=== PATIENT | male | born 1975 | race Two or more races ===

== ENCOUNTER 2024-05-21 09:17 | Inpatient (IN) | payer BC ==
[~2024-05-21] VITALS: Ht 177.8 cm; Wt 59.0 kg
[2024-05-21] MEDS ORDERED: iron (09:48)
[2024-05-21 09:52] LABS: BASOPHILS % 2.5 % (0.0-2.0); DIFFERENTIAL COMMENT 1; EOSINOPHILS % 1.2 % (0.0-5.0); HEMATOCRIT. 33.2 % (42.0-52.0); HEMOGLOBIN. 9.7 g/dL (14.0-18.0); MEAN CORPUSCULAR HEMOGLOBIN 17.4 pg (28.0-32.0); MEAN CORPUSCULAR HGB CONC 29.2 g/dL (31.0-37.0); MEAN CORPUSCULAR VOLUME 59.5 fL (80.0-94.0); MEAN PLATELET VOLUME 8.4 fl (7.4-10.4); NEUTROPHILS % 66.3 % (40.0-76.0); PLATELET 874 x1000/uL (130-400); RED BLOOD CELL COUNT 5.58 mill/uL (4.7-6.1); RED CELL DISTRIBUTION WIDTH 30.7 % (11.6-14.6); WHITE BLOOD COUNT 12.9 x1000/uL (4.5-11.0)
[2024-05-21 09:53] LABS: ADD RBC MORPHOLOGY YES
[2024-05-21 09:55] LABS: CHLORIDE 106 mEq/L (98-107); POTASSIUM 4.5 mEq/L (3.5-5.1); SODIUM 136 mEq/L (136-145)
[2024-05-21 09:56] LABS: CALCIUM 8.8 mg/dL (8.7-10.4); CARBON DIOXIDE 26 mEq/L (21-32)
[2024-05-21 10:01] LABS: CREATININE 0.8 mg/dL (0.6-1.3); GLUCOSE 101 mg/dL (70-105); UREA NITROGEN BLOOD 13 mg/dL (9-23)
[2024-05-21 10:03] LABS: ALANINE AMINOTRANSFERASE 15 IU/L (10-49); ALBUMIN 4.1 g/dL (3.2-4.8); ASPARTATE AMINOTRANSFERASE 20 IU/L (<34); BILIRUBIN DIRECT 0.2 mg/dL (<=3.0); BILIRUBIN TOTAL 0.5 mg/dL (0.1-1.0); PROTEIN TOTAL 8.4 g/dL (6.0-8.3)
[2024-05-21 10:04] LABS: TROPONIN I HIGH SENSITIVITY < 4 ng/L (3.0-53)
[2024-05-21 10:05] LABS: INR 1.1; PROTHROMBIN TIME 11.8 sec (9.6-11.0)
[2024-05-21 10:14] LABS: ANISOCYTOSIS 3+; MICROCYTOSIS 3+; PLATELET ESTIMATE MARKEDLY INCREASED
[2024-05-21] MEDS: SODIUM CHLORIDE 0.9% 1000ML BAG (SEPSIS BOLUS) IV ONE (10:16)
[2024-05-21] MEDS: ACETAMINOPHEN 325MG TABLET PO NR (10:16)
[2024-05-21] MEDS: CEFTRIAXONE 1GM/50ML 50 ML IV NR (10:16)
[2024-05-21 10:25] LABS: OVALOCYTES 1+; ROULEAUX 1+
[2024-05-21] MEDS: AZITHROMYCIN 500MG/250ML 250 ML IV SCH (11:47)
[2024-05-21] MEDS ORDERED: CLONIDINE 0.1MG TABLET PO PRN (12:30)
[2024-05-21] MEDS ORDERED: MAGNESIUM/ALUMINUM HYDROXIDE/SIMETHICONE 30ML UDC PO PRN (12:30)
[2024-05-21] MEDS ORDERED: ACETAMINOPHEN 325MG TABLET PO PRN ×2 (12:30)
[2024-05-21] MEDS ORDERED: GUAIFENESIN 200MG/10ML SUGAR FREE UDC PO PRN (12:30)
[2024-05-21] MEDS ORDERED: ONDANSETRON HCL 4MG/2ML INJ IV PRN (12:30)
[2024-05-21] MEDS ORDERED: IPRATROPIUM/ALBUTEROL 0.5-3(2.5)MG/3ML NEB HHN PRN (12:30)
[2024-05-21] MEDS ORDERED: DOCUSATE SODIUM 100MG CAPSULE PO PRN (12:30)
[2024-05-21] MEDS ORDERED: AMLODIPINE 5MG TABLET PO NR (12:45)
[2024-05-21 13:29] LABS: IRON 14 ug/dL (65-175); TRIGLYCERIDE 84 mg/dL (0-150)
[2024-05-21 13:30] LABS: LDL CHOLESTEROL 58 mg/dL (5-100)
[2024-05-21 13:31] LABS: CHOLESTEROL 105 mg/dL (<200); HDL CHOLESTEROL 40 mg/dL (>55)
[2024-05-21 13:32] LABS: TOTAL IRON BINDING CAPACITY 275 ug/dl (250-425)
[2024-05-21 13:34] LABS: T4 FREE 1.01 ng/dL (0.89-1.76); THYROID STIMULATING HORMONE 0.62 uIU/mL (0.55-4.78)
[2024-05-21] MEDS: FERROUS SULFATE 325MG TABLET PO SCH (13:50)
[2024-05-21] MEDS: SODIUM CHLORIDE 0.9% 1,000 ML IV SCH (13:51)
[2024-05-21 14:53] LABS: FOLIC ACID (FOLATE) SERUM 11.81 ng/mL (>5.38)
[2024-05-21 14:54] LABS: VITAMIN B12 SERUM 498 pg/mL (211-911)
[2024-05-21 15:06] LABS: CLARITY URINE CLEAR (CLEAR); COLOR URINE YELLOW (YELLOW); GLUCOSE URINE NEGATIVE (NEGATIVE); KETONES URINE NEGATIVE (NEGATIVE); LEUKOCYTE ESTERASE URINE NEGATIVE (NEGATIVE); NITRITE URINE NEGATIVE (NEGATIVE); OCCULT BLOOD URINE NEGATIVE (NEGATIVE); PH URINE 7.5 (4.5-8.0); PROTEIN URINE NEGATIVE (NEGATIVE); SPECIFIC GRAVITY URINE 1.011 (1.005-1.030); UROBILINOGEN URINE 0.2 E.U./dL (0.2-1.0)
[2024-05-21 15:11] LABS: FERRITIN 4 ng/mL (22-322)
[2024-05-21 15:26] LABS: *AMPHETAMINES SCREEN URINE PRESUMPTIVE POSITIVE (NEGATIVE); *BARBITURATES SCREEN URINE NEGATIVE (NEGATIVE); *BENZODIAZEPINES SCREEN URINE NEGATIVE (NEGATIVE); *COCAINE SCREEN URINE NEGATIVE (NEGATIVE)
[2024-05-21 15:27] LABS: CANNABINOID URINE SCREEN NEGATIVE (NEGATIVE); ECSTASY MDMA SCREEN URINE NEGATIVE (NEGATIVE); METHADONE URINE SCREEN NEGATIVE (NEGATIVE); OPIATES URINE SCREEN NEGATIVE (NEGATIVE); PHENCYCLIDINE URINE SCREEN NEGATIVE (NEGATIVE)
[2024-05-21 22:32] LABS: CREATINE KINASE 31 IU/L (46-171)
[2024-05-21] MEDS: FAMOTIDINE 20MG TABLET PO SCH (22:32)
[2024-05-21 22:50] LABS: TROPONIN I HIGH SENSITIVITY < 4 ng/L (3.0-53)
[2024-05-21 23:14] LABS: CREATINE KINASE 31 IU/L (46-171)
[2024-05-21 23:18] LABS: TROPONIN I HIGH SENSITIVITY < 4 ng/L (3.0-53)
[2024-05-22] VITALS (7 sets, daily range): BP systolic 89–113; BP diastolic 56–77; PULSE 80–106; RESP 20–22; TEMP 97.9–98.7; O2SAT 98
[2024-05-22 02:04] LABS: CLARITY URINE CLEAR (CLEAR); COLOR URINE YELLOW (YELLOW); GLUCOSE URINE NEGATIVE (NEGATIVE); KETONES URINE NEGATIVE (NEGATIVE); LEUKOCYTE ESTERASE URINE NEGATIVE (NEGATIVE); NITRITE URINE NEGATIVE (NEGATIVE); OCCULT BLOOD URINE 2+ (NEGATIVE); PH URINE 7.5 (4.5-8.0); PROTEIN URINE TRACE (NEGATIVE); SPECIFIC GRAVITY URINE 1.012 (1.005-1.030); UROBILINOGEN URINE 0.2 E.U./dL (0.2-1.0)
[2024-05-22 03:33] LABS: RBC URINE 50-100 /hpf (0-2); WBC URINE 0-2 /hpf (0-2)
[2024-05-22 03:34] LABS: BACTERIA URINE NONE SEEN; SQUAMOUS EPITHELIAL CELL URINE NONE SEEN /lpf (RARE/1+)
[2024-05-22 07:46] LABS: BASOPHILS % 0.8 % (0.0-2.0); EOSINOPHILS % 3.8 % (0.0-5.0); HEMATOCRIT. 28.8 % (42.0-52.0); HEMOGLOBIN. 8.2 g/dL (14.0-18.0); LYMPHOCYTES % 29.7 % (20.0-50.0); MEAN CORPUSCULAR HEMOGLOBIN 17.3 pg (28.0-32.0); MEAN CORPUSCULAR HGB CONC 28.6 g/dL (31.0-37.0); MEAN CORPUSCULAR VOLUME 60.5 fL (80.0-94.0); MEAN PLATELET VOLUME 8.3 fl (7.4-10.4); MONOCYTES % 8.4 % (2.0-8.0); NEUTROPHILS % 57.3 % (40.0-76.0); PLATELET 588 x1000/uL (130-400); RED BLOOD CELL COUNT 4.76 mill/uL (4.7-6.1); RED CELL DISTRIBUTION WIDTH 30.1 % (11.6-14.6); WHITE BLOOD COUNT 11.5 x1000/uL (4.5-11.0)
[2024-05-22 07:50] LABS: DIFFERENTIAL COMMENT 1
[2024-05-22 07:57] LABS: CARBON DIOXIDE 20 mEq/L (21-32); CHLORIDE 106 mEq/L (98-107); POTASSIUM 3.9 mEq/L (3.5-5.1); SODIUM 134 mEq/L (136-145)
[2024-05-22 07:58] LABS: CALCIUM 8.2 mg/dL (8.7-10.4)
[2024-05-22 08:02] LABS: CREATININE 0.6 mg/dL (0.6-1.3)
[2024-05-22 08:03] LABS: GLUCOSE 84 mg/dL (70-105); UREA NITROGEN BLOOD 6 mg/dL (9-23)
[2024-05-22] MEDS: CEFTRIAXONE 1GM/50ML 50 ML IV SCH (08:52)
[2024-05-22] MEDS ORDERED: AMLODIPINE 10MG TABLET PO SCH (09:00)
[2024-05-22] MEDS: AZITHROMYCIN 500MG/250ML 250 ML IV SCH (10:51)
[2024-05-22] MEDS ORDERED: AZIT500T8 MT (13:59)
[2024-05-22] MEDS ORDERED: FERR-63 PO (13:59)
[2024-05-22] MEDS ORDERED: AMOX1TAB16 MT (13:59)
== END 2024-05-22 16:33 | disposition home or self-care (01) | DRG 871 ==
LOC: ER 09:17 → 5WST 11:13 → 3WST 23:52
PROVIDERS: ADMIT Hospitalist; ATTEND Hospitalist
DX: A41.9 Sepsis, unspecified organism (principal); J18.9 Pneumonia, unspecified organism; E78.5 Hyperlipidemia, unspecified; R97.20 Elevated prostate specific antigen [PSA]; D50.9 Iron deficiency anemia, unspecified; Z20.822 Contact with and (suspected) exposure to COVID-19; D75.838 Other thrombocytosis; I10 Essential (primary) hypertension
CPT/HCPCS: 36415; 71045; 80048; 80061; 80076; 80305; 81003; 82550; 82607; 82728; 82746; 83540; 83550; 83605; 84145; 84153; 84439; 84443; 84484; 85025; 87426; 87804; 93005; 97166; 99291; J0456; J0696